=== PATIENT | male | born 1950 | race Caucasian/White ===

== ENCOUNTER 2018-06-18 05:24 | Day surgery (SDC) | payer MEDICARE, OTHER ==
[2018-06-11 10:07] LABS: HEMATOCRIT 44.3 % (37.9-51.0); HEMOGLOBIN 15.4 g/dL (13.5-17.0); MEAN CORPUSCULAR HEMOGLOBIN 33.3 pg (27.0-33.4); MEAN CORPUSCULAR HGB CONC 34.7 g/dL (32.0-36.0); MEAN CORPUSCULAR VOLUME 96 fl (80-97); PLATELET COUNT 202 10^3/uL (150-450); RED BLOOD COUNT 4.62 10^6/uL (4.35-5.55); RED CELL DISTRIBUTION WIDTH 13.1 % (11.5-14.0); WHITE BLOOD COUNT 8.4 10^3/uL (4.0-10.5)
--- NOTE | 2018-06-11 10:18 | RADIOLOGY REPORT (SQ) ---
EXAM DESCRIPTION: CHEST PA/LATERAL COMPLETED DATE/TIME: 06/11/2018 9:58 am REASON FOR STUDY: PRE-OP Z01.818 COMPARISON: None. EXAM PARAMETERS: NUMBER OF VIEWS: two views TECHNIQUE: Digital Frontal and Lateral radiographic views of the chest acquired. RADIATION DOSE: NA LIMITATIONS: none FINDINGS: LUNGS AND PLEURA: Lung herring are hyperexpanded. There is flattening of the hemidiaphragm s. Interstitial markings are prominent most likely chronic. No consolidation or effusions. No pneu mothorax. MEDIASTINUM AND HILAR STRUCTURES: No masses or contour abnormalities. HEART AND VASCULAR STRUCTURES: Heart normal size. No evidence for failure. BONES: There is an exaggerated thoracic kyphosis. HARDWARE: None in the chest. OTHER: No other significant finding. 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 Exaggerated thoracic kyphosis. N o acute findings. TECHNICAL DOCUMENTATION: JOB ID: [id number] [employer]- All Rights Reserved Reading location - IP/workstation name: [email or web address]
[2018-06-11 10:52] LABS: ALANINE AMINOTRANSFERASE 24 U/L (21-72); ALBUMIN 4.3 g/dL (3.5-5.0); ALKALINE PHOSPHATASE 96 U/L (38-126); ANION GAP 10 (5-19); ASPARTATE AMINO TRANSFERASE 24 U/L (17-59); BILIRUBIN,DIRECT 0.3 mg/dL (0.0-0.4); BILIRUBIN,TOTAL 0.7 mg/dL (0.2-1.3); BLOOD UREA NITROGEN 23 mg/dL (7-20); CALCIUM 9.6 mg/dL (8.4-10.2); CARBON DIOXIDE 31 mmol/L (22-30); CHLORIDE 101 mmol/L (98-107); GLUCOSE 91 mg/dL (75-110); POTASSIUM 4.8 mmol/L (3.6-5.0); SODIUM 142.1 mmol/L (137-145); TOTAL PROTEIN 7.4 g/dL (6.3-8.2)
--- NOTE | 2018-06-11 13:27 | EKG REPORT ---
SEVERITY:- OTHERWISE NORMAL ECG - SINUS ARRHYTHMIA, RATE 59-[address] DEPRESSION, INFERIOR LEADS : Confirmed by: Calvin Ferguson MD 11-Jun-2018 13:26:27
[~2018-06-18 05:24] MED LIST: IBUPROFEN 800 MG in DEXTROSE 5%-WATER 250 ML IV PRN; LACTATED RINGERS 1000 ML IV PRN; LIDOCAINE 0.5% INJ-PF (5 MG/ML) 50 ML SDV SUBCUT PRN; RINGERS SOLUTION,LACTATED 1,000 ML IV PRN
[2018-06-18] MEDS ORDERED: ALBUTEROL SULFATE 0.083% NEB 2.5 MG/3 ML AMPUL NEB ONE (05:53)
[2018-06-18] MEDS ORDERED: FENTANYL CITRATE INJ/PF 100 MCG/2 ML AMPUL ONE (06:18)
[2018-06-18] MEDS ORDERED: LIDOCAINE 2% INJ-PF (20 MG/ML) 10 ML AMPUL ONE (06:18)
[2018-06-18] MEDS ORDERED: ACETAMINOPHEN 1,000 MG/100 ML RTUPB IV ONE (06:19)
[2018-06-18] MEDS ORDERED: MIDAZOLAM 2 MG/2 ML INJ ONE (06:19)
[2018-06-18] MEDS ORDERED: DEXAMETHASONE SOD PHOSPHATE INJ 4 MG/1 ML VIAL ONE (06:19)
[2018-06-18] MEDS ORDERED: ONDANSETRON HCL INJ/PF 4 MG/2 ML SDV ONE (06:19)
[2018-06-18] MEDS ORDERED: PROPOFOL INJ 200 MG/20 ML VIAL IV ONE (06:19)
[2018-06-18] MEDS ORDERED: BUPIVACAINE HCL 0.25 % INJ/PF (2.5 MG/1 ML) 30 ML VIAL ONE (06:36)
[2018-06-18] MEDS ORDERED: CEFAZOLIN 2 GM/D5W RTU 2 GM/50 ML RTUPB IV ONE (07:28)
[2018-06-18] MEDS ORDERED: MORPHINE SULFATE 10 MG/ML INJ IV PRN (08:57)
[2018-06-18] MEDS ORDERED: FENTANYL CITRATE INJ/PF 100 MCG/2 ML AMPUL IV PRN ×3 (08:57)
[2018-06-18] MEDS ORDERED: PROMETHAZINE HCL INJ 25 MG/1 ML VIAL IV PRN ×2 (08:57)
[2018-06-18] MEDS ORDERED: MEPERIDINE HCL/PF INJ 25 MG/1 ML DISP.SYRIN IV PRN (08:57)
[2018-06-18] MEDS ORDERED: DIPHENHYDRAMINE HCL 50 MG/ML VIAL IV PRN (08:57)
[2018-06-18] MEDS ORDERED: ONDANSETRON HCL INJ/PF 4 MG/2 ML SDV IV PRN (08:57)
--- NOTE | 2018-06-18 10:33 | Operative Report ---
Nonrecallable Operative Report DATE OF SURGERY: 06/18/18 PREOPERATIVE DIAGNOSIS: Bilateral inguinal hernias POSTOPERATIVE DIAGNOSIS: Large bilateral indirect inguinal hernias OPERATION: Robot-assisted laparoscopic bilateral inguinal hernia repair with mesh. SURGEON: JAD VARGAS 1ST HOT DIP PLATING SUPERVISOR: SWATHI TOLEDO ANESTHESIA: GA TISSUE REMOVED OR ALTERED: None COMPLICATIONS: None apparent ESTIMATED BLOOD LOSS: Minimal PROCEDURE: Drains/implants: Right and left large 3 DMax inguinal hernia mesh. Procedure in detail: After informed consent was obtained, the patient was brought into the operating room and laid in the supine position. The area of the abdomen was prepped and draped in a normal sterile fashion. A supraumbilical incision was created with a 15 blade scalpel. Dissection was carried through the subcutaneous tissue using sharp and blunt dissection. The cicatrix was identified, grasped with a Andrez clamp, and retracted upwards. The linea alba fascia was incised sharply, the abdomen was entered sharply. The balloon trocar was inserted and pneumoperitoneum was achieved. 2 8 mm robotic trochars were placed through the lateral abdominal wall under direct laparoscopic visualization. The robot was then brought over the patient and docked appropriately. I then assumed my position at the surgeon's console. Dissection was begun in the right groin. There is a large indirect inguinal hernia defect. The peritoneum was opened 2-3 cm superior to the indirect inguinal hernia defect. A preperitoneal dissection was undertaken using sharp dissection, blunt dissection, and electrocautery. The large indirect inguinal hernia sac was freed from the cord structures. This was done with great care, so as not to injure the cord structures. Once the sac was freed, it was everted. Next, a large 3 DMax inguinal hernia mesh was placed into the right preperitoneal space. It was sutured medially and superiorly. After this was completed, the peritoneum was closed using 2-0 V lock suture. This portion of the procedure was then concluded, and attention was turned to the left side. The left inguinal hernia was also large and indirect. Dissection was begun 2-3 cm superior to the defect. The peritoneum was incised and a preperitoneal dissection was undertaken. This was done using blunt dissection, sharp dissection, and electrocautery. The hernia sac was freed from the cord structures, taking great care not to injure the cord structures. Once the sac was freed, it was everted. Next a left-sided large 3 DMax inguinal hernia mesh was placed into the preperitoneal space. It was sutured into place using 2-0 Vicryl suture medially and superiorly. The peritoneum was then closed using 20V lock suture in simple running fashion. The repairs were then inspected, and found to be in good order. The robot was then undocked, and I scrubbed back into the case. The trochars were removed. The supraumbilical fascia was closed using 0 Vicryl suture in [id number] fashion. The overlying skin was closed using 4-0 Vicryl Rapide suture in subcuticular fashion. Dressings were placed, and the procedure was concluded. All sponge, instrument, and needle counts were correct x2. Condition: Stable. Swathi Toledo PA-C was scrubbed and present the entirety of the procedure. She assisted with all portions of the procedure including placement of the trochars, docking of the robot, exchanging of the robotic instruments, closure of the fascia, and closure of the skin.
--- NOTE | 2018-06-18 10:35 | Discharge Summary ---
Discharge Summary (SDC) - Discharge Final Diagnosis: Bilateral indirect inguinal hernias Date of Surgery: 06/18/18 Discharge Date: 06/18/18 Condition: Stable Treatment or Instructions: Discharge home. Diet as tolerated. Activity: No lifting greater than 10 pounds x 4 weeks. Follow-up with me in 7-10 days. [place] 10/325 mg p.o. every 6 hours as needed for pain. Okay to shower on Thursday. No tub baths or swimming pools times 2 weeks. Referrals: JYOTI ANDINO MD [Primary Care Provider] - Discharge Diet: As Tolerated Respiratory Treatments at Home: Deep Breathing/Coughing, Incentive Spirometer Discharge Activity: No Lifting Over 10 Pounds Home Care Assistance: None Needed Report the Following to Your Physician Immediately: Shortness of Breath, Nausea , Vomiting, Increase in Pain, Fever over 101 Degrees, Unusual Bleeding, Redness , Swelling
[2018-06-18 13:25] VITALS: BP 153/80
[2018-06-18] MEDS ORDERED: ROCURONIUM BROMIDE INJ 50 MG/5 ML VIAL IV ONE (14:07)
[2018-06-18] MEDS ORDERED: NEOSTIGMINE METHYLSULFATE 10 MG/10 ML VIAL ONE (14:07)
[2018-06-18] MEDS ORDERED: GLYCOPYRROLATE 1 MG/5 ML SYRINGE ONE (14:07)
[2018-06-18] MEDS ORDERED: KETOROLAC TROMETHAMINE 60 MG/2 ML SDV ONE (14:07)
[2018-06-18] MEDS ORDERED: SUCCINYLCHOLINE CHLORIDE INJ 200 MG/10 ML VIAL ONE (14:07)
== END 2018-06-18 12:25 | disposition home or self-care (01) ==
LOC: OROUT 05:24
PROVIDERS: ATTEND Surgery
DX: K40.20 Bilateral inguinal hernia, without obstruction or gangrene, not specified as recurrent (principal); E78.5 Hyperlipidemia, unspecified; M41.9 Scoliosis, unspecified; Z86.010 Personal history of colon polyps; F17.210 Nicotine dependence, cigarettes, uncomplicated; J44.9 Chronic obstructive pulmonary disease, unspecified; Z67.30 Type AB blood, Rh positive; Z79.899 Other long term (current) drug therapy
CPT/HCPCS: 49650; S2900; 36415; 71046; 80053; 840; 85027; 86850; 86900; 86901; 93005; 93010; C1781; J0131; J0330; J0690; J1100; J1741; J1885; J2250; J2405; J2704; J3010; J3490; J7060

== ENCOUNTER → 2019-02-02 | Outpatient (CLI) | payer OTHER ==
[~2019-02-02] MED LIST changes: -IBUPROFEN 800 MG in DEXTROSE 5%-WATER 250 ML IV PRN; -LACTATED RINGERS 1000 ML IV PRN; -LIDOCAINE 0.5% INJ-PF (5 MG/ML) 50 ML SDV SUBCUT PRN; +REGADENOSON INJ 0.4 MG/5 ML DISP.SYRIN IV ONE; -RINGERS SOLUTION,LACTATED 1,000 ML IV PRN
--- NOTE | 2019-02-03 23:19 | DRAGON STRESS TEST REPORT ---
Intravenous Lexiscan Cardiolite stress test using single photon emmision computerized tomography. Date of procedure: 02/02/2019. Ordering Provider: Dr. Ray Pate. Patient's status: Out Patient. Indication: History of abnormal EKG showing PVCs. Today the patient is EKG is normal.. Coronary risk factors: Age, dyslipidemia, and history of tobacco abuse. Resting EKG: Sinus Rhythm. Within Normal Limits. Stress EKG: No changes of ischemia. The patient had no chest pain or discomfort, and there were no arrhythmias seen. Reason for termination: Protocol. Conclusions: Normal EKG and hemodynamic response to IV Lexiscan. Nuclear data: At rest the patient was given 12.36 millicuries of technetium 99m sestamibi injected intravenously. As per protocol rest non gated SPECT images were obtained. Subsequently the patient was given intravenous Lexiscan at a dose of 0.4 mg in 5 mL intravenously, followed by flush with normal saline. Subsequently the stress dose of 36.5 millicuries of technetium 99m sestamibi was injected intravenously. As per protocol stress gated images were obtained. Nuclear interpretation: Review of images showed that all segments of the myocardium had normal perfusion at rest, and normal perfusion post stress with IV Lexiscan. All segments of the myocardium had normal motion, contraction, and thickening by gated study. T. I D. ratio was normal at 1.16. There is no transient ischemic dilatation of the left ventricle. Computer read rest, and stress left ventricular ejection fraction were 50 %, and 51 %, respectively. Visually both the stress and rest ejection fractions were normal, and greater than 55%. Conclusion: 1. There is no scintigraphic evidence of Lexiscan induced myocardial ischemia. 2. There is no scintigraphic evidence of myocardial infarction/scar. Recommendations: Aggressive risk factor modification, and treating the underlying co- morbidities. [facility]
== END ==
LOC: RAD 06:44
PROVIDERS: ATTEND Internal Medicine
DX: R94.31 Abnormal electrocardiogram [ECG] [EKG] (principal)
CPT/HCPCS: 93017; 78452; A9500; J2785; Q9969

== ENCOUNTER → 2019-05-27 | Outpatient (CLI) | payer OTHER ==
--- NOTE | 2019-05-27 08:29 | RADIOLOGY REPORT (SQ) ---
EXAM DESCRIPTION: U/S ABD AORTIC SCREENING COMPLETED DATE/TIME: 05/27/2019 8:15 am REASON FOR STUDY: ENCOUNTER FOE SCREENING FOR CARDIOVASCULAR DISORDERS Z13.6 ENCOUNTER FOR SCREENIN G FOR CARDIOVASCULAR DISORDERS Z87.891 PERSONAL HISTORY OF NICOTINE DEPENDENCE COMPARISON: None. TECHNIQUE: Static and dynamic grayscale images acquired of the aorta and stored on PACs. Selected co jarrett Doppler and spectral images recorded. LIMITATIONS: None. FINDINGS: AORTIC CALIBER MAXIMAL PROXIMAL: 1.9 x 1.9 x 1.7 cm. MID: 2.5 x 2.3 x 1.7 cm. DISTAL: 1.7 x 2.2 x 1.6 cm. ILIAC DIAMETER RIGHT: 0.7 x 1.1 x 1.0 cm. LEFT: 0.5 x 0.8 x 0.8 cm. OTHER: The aorta demonstrates atherosclerotic change. While there is no aneurysmal dilatation the ao rta has increased in size when compared to prior study. There is scattered calcified plaque identifi ed. IMPRESSION: NO ABDOMINAL AORTIC ANEURYSM. COMMENT: Aortic aneurysm imaging followup: 2.6-2.9 cm Every 5 years* *Based upon the Society for Vascular Surgery Guidelines: J Vasc Surg. 2009 Oct;50(4 Suppl):S2-49 *For aortas of maximum diameter of 2.6-2.9 cm meeting the criteria for AAA (?1.5 x proximal normal se gment) TECHNICAL DOCUMENTATION: JOB ID: [id number]- All Rights Reserved Reading location - IP/workstation name: [email or web address]
--- NOTE | 2019-05-27 12:04 | RADIOLOGY REPORT (SQ) ---
EXAM DESCRIPTION: CT LUNG CANCER SCREENING COMPLETED DATE/TIME: 05/27/2019 8:41 am REASON FOR STUDY: PERSONAL HISTORY OF NICOTINE DEPENDENCE Z13.6 ENCOUNTER FOR SCREENING FOR CARDIOV ASCULAR DISORDERS Z87.891 PERSONAL HISTORY OF NICOTINE DEPENDENCE Has the patient had a Chest CT scan within the past year? N Was the patient offered tobacco cessation counseling? Y Was the patient engaged in shared decision making for this test? Y Does the patient have signs or symptoms of Lung Cancer? N Is the patient a smoker? Y How many pack years? 30 How many years since quitting smoking? N Patients age: 68 COMPARISON: None. TECHNIQUE: Low Dose CT scan performed of the chest without intravenous contrast for purposes of scre ening for lung cancer. Images reviewed with lung, soft tissue and bone windows. Reconstructed coron al and sagittal MPR images reviewed. All images stored on PACS. All CT scanners at this facility use dose modulation, iterative reconstruction, and/or weight based d osing when appropriate to reduce radiation dose to as low as reasonably achievable (ALARA). [facility]: Dose Right [facility]: CareDose [facility]: Dose Right [facility]: Teradose 4D [facility]: [employer] RADIATION DOSE: CT Rad equipment meets quality standard of care and radiation dose reduction techniq ues were employed. CTDIvol: 2.1 mGy. DLP: 83 mGy-cm. LIMITATIONS: None FINDINGS: LUNGS AND PLEURA: The trachea and main bronchi are patent. There is centrilobular emphyse ma and there are clustered subpleural cysts without a basilar predilection. In addition, there is ex tensive subpleural reticulation without ground-glass opacification to ancillary findings of fibrosis including bronchiectasis, bronchiolectasis or architectural distortion. There is no nodule or mass. There is no pleural fluid, thickening or calcification. HILAR AND MEDIASTINAL STRUCTURES: Evaluation of the timothy for adenopathy is limited due to the absence of intravenous contrast. There is a prominent right lower peritracheal lymph node (image 182 of ser ies 2) that measures up to 13 mm in short axis diameter. There is no mediastinal mass. HEART AND VASCULAR STRUCTURES: Evaluation is limited due to the absence of intravenous contrast. The re is no aortic aneurysm or evidence of an intramural hematoma. There is no cardiomegaly or pericard ial effusion. CORONARY ARTERY CALCIFICATIONS: Moderate to severe UPPER ABDOMEN, THYROID, BONES, OTHER SOFT TISSUES: Extent treated kyphotic curvature of the thoracic spine. The thoracic vertebral body heights are maintained. There is no fracture. There is no supra clavicular or axillary adenopathy. IMPRESSION: 1. No pulmonary nodule or mass. 2. Severe centrilobular emphysema. The clustered subpleural cysts without a basilar predilection de scribed above could represent paraseptal emphysema, however a distinct chronic interstitial process s hould also be considered given the extensive subpleural reticulation. LUNGRADS: LUNGRADS: 1 NEGATIVE. NO NODULES, OR DEFINITELY BENIGN NODULES MODIFIER: S CLINICALLY SIGNIFICANT OR POTENTIALLY CLINICALLY SIGNIFICANT FINDINGS (non lung cancer) RECOMMENDATION: Continue annual screening with LDCT in 12 months. COMMENT: CRITERIA: No lung nodules. Nodules with specific calcifications: Complete, central, popcorn, concentric rings and fat containin g nodules. TECHNICAL DOCUMENTATION: JOB ID: [id number] Quality ID # [id number]: Final reports with documentation of one or more dose reduction techniques (e.g., Au tomated exposure control, adjustment of the mA and/or kV according to patient size, use of iterative reconstruction technique) 2010 [facility] Reading location - IP/workstation name: [email or web address]
== END ==
LOC: RAD 07:48
PROVIDERS: ATTEND Internal Medicine
DX: Z12.2 Encounter for screening for malignant neoplasm of respiratory organs (principal); Z13.6 Encounter for screening for cardiovascular disorders; Z09 Encounter for follow-up examination after completed treatment for conditions other than malignant neoplasm; Z87.891 Personal history of nicotine dependence; J43.2 Centrilobular emphysema
CPT/HCPCS: 76706; G0297

== ENCOUNTER → 2020-05-28 | Outpatient (CLI) | payer OTHER ==
--- NOTE | 2020-05-28 10:22 | RADIOLOGY REPORT (SQ) ---
EXAM DESCRIPTION: CT LUNG CANCER SCREENING IMAGES COMPLETED DATE/TIME: 05/28/2020 7:45 am REASON FOR STUDY: Z87.891 PERSONAL HISTORY OF NICOTINE DEPENDENCE Z87.891 PERSONAL HISTORY OF NICOT INE DEPENDENCE Has the patient had a Chest CT scan within the past year? N Was the patient offered tobacco cessation counseling? Y Was the patient engaged in shared decision making for this test? Y Does the patient have signs or symptoms of Lung Cancer? N Is the patient a smoker? Y How many pack years? 45 How many years since quitting smoking? NA Patients age: 69 COMPARISON: CT of the chest without contrast from 05/27/2019. TECHNIQUE: Low Dose CT scan performed of the chest without intravenous contrast for purposes of scre ening for lung cancer. Images reviewed with lung, soft tissue and bone windows. Reconstructed coron al and sagittal MPR images reviewed. All images stored on PACS. All CT scanners at this facility use dose modulation, iterative reconstruction, and/or weight based d osing when appropriate to reduce radiation dose to as low as reasonably achievable (ALARA). [facility]: Dose Right [facility]: CareDose [facility]: Dose Right [facility]: Teradose 4D [facility]: [employer] RADIATION DOSE: CT Rad equipment meets quality standard of care and radiation dose reduction techniq ues were employed. CTDIvol: 2.1 mGy. DLP: 79 mGy-cm. LIMITATIONS: None FINDINGS: LUNGS AND PLEURA: The trachea and main bronchi are patent. There is re- demonstration of centrilobular emphysema and of clustered subpleural cysts without a basilar predilection. There is a lso unchanged mild bronchial wall thickening and mild bronchiolectasis. There is no pulmonary nodule , consolidation, ground-glass opacification, pleural effusion, pleural thickening, pleural calcificat ions or pneumothorax. HILAR AND MEDIASTINAL STRUCTURES: Evaluation of the timothy for adenopathy is limited by the absence of intravenous contrast. There is re- demonstration of prominent paratracheal and sub- carinal lymph no shawn that measure up to 13 mm in short axis diameter. HEART AND VASCULAR STRUCTURES: Atherosclerotic calcification of the thoracic aorta without aneurysm o r intramural hematoma. There is no cardiomegaly or pericardial effusion. CORONARY ARTERY CALCIFICATIONS: Moderate. UPPER ABDOMEN, THYROID, BONES, OTHER SOFT TISSUES: Accentuated kyphotic curvature of the thoracic spi ne. IMPRESSION: 1. NO PULMONARY NODULE OR MASS. 2. SEVERE EMPHYSEMA. LUNGRADS: LUNGRADS: 1 NEGATIVE. NO NODULES, OR DEFINITELY BENIGN NODULES MODIFIER: NONE RECOMMENDATION: Continue annual screening with LDCT in 12 months. COMMENT: CRITERIA: No lung nodules. Nodules with specific calcifications: Complete, central, popcorn, concentric rings and fat containin g nodules. TECHNICAL DOCUMENTATION: JOB ID: [id number] Quality ID # [id number]: Final reports with documentation of one or more dose reduction techniques (e.g., Au tomated exposure control, adjustment of the mA and/or kV according to patient size, use of iterative reconstruction technique) 2010 [facility] Reading location - IP/workstation name: [facility] [email or web address]
== END ==
LOC: RAD 07:32
PROVIDERS: ATTEND Internal Medicine
DX: Z12.2 Encounter for screening for malignant neoplasm of respiratory organs (principal); J43.8 Other emphysema; Z87.891 Personal history of nicotine dependence
CPT/HCPCS: G0297